=== PATIENT | female | born 1995 | race Caucasian/White ===

== ENCOUNTER 2024-10-16 07:48 | Day surgery (SDC) | payer BC, SELFPAY ==
[2024-10-16 08:16] VITALS: BMI 55.2
[2024-10-16 08:21] LABS: Ur HCG Qualitative* Negative (Negative)
[2024-10-16 08:24] VITALS: BP 146/68; PULSE 106; RESP 20; TEMP 37.1; O2SAT 95
[2024-10-16] MEDS: SODIUM CHLORIDE 0.9 % (FLUSH) 10 ML SYRINGE IVF (08:45)
[2024-10-16] MEDS: LACTATED RINGERS 1000 ML 1,000 ML 100 ML IV (08:46)
--- NOTE | 2024-10-16 08:53 | W.PM.H&PU ---
History & Physical Update History & Physical Update H&P Reviewed and patient assessed: No changes noted
--- NOTE | 2024-10-16 08:55 | CRLHL7_ITS ---
For Patients: As a result of the Cures Act, medical imaging exams and procedure reports are released immediately into your electronic medical record. You may view this report before your referring provider. If you have questions, please contact your health care provider. Indication: NEXPLANON REMOVAL Technique: One fluoroscopic image of the left elbow soft tissues. Fluoroscopic time 23.7 seconds. IMPRESSION: Fluoroscopic guidance for soft tissue procedure. Dictated by Abdifatah Mcclure MD @ 10/16/2024 10:56:05 AM (Electronically Signed)
[2024-10-16] MEDS: CEFAZOLIN 1 GM inj IVP (09:25)
[2024-10-16] MEDS: LIDOCAINE 1%-EPI 1:100,000 20 ML INFILTRATI (09:45)
[2024-10-16] MEDS: BUPIVACAINE 0.25% 30 ML INJECTION (09:45)
--- NOTE | 2024-10-16 10:01 | SUR.OPER ---
Nexplanon implant removed and discarded per Dr. Francis.
[2024-10-16 10:20] VITALS: BP 143/72; PULSE 106; RESP 20; TEMP 36.8; O2SAT 98
--- NOTE | 2024-10-16 10:20 | P.ANES_ITS ---
Anesthesia Charges Start Date/Time Anesthesia Start Date: 10/16/24 Anesthesia Start Time: 09:11 Stop Date/Time Anesthesia Stop Date: 10/16/24 Anesthesia Stop Time: 10:20 Coding CPT Codes CPT Codes: ANESTH SKIN EXT/PER/ATRUNK - 24555 ([id number]) P3 - PATIENT W/SEVERE SYS DISEASE, QK - MILL TENDER SECOND OPERATOR 2-4 CNCRNT ANES PROC, QX - EVS TECH SVC W/ MD MED DIRECTION
--- NOTE | 2024-10-16 10:20 | W.ANESCHARGE ---
Anesthesia Charges Start Date/Time Anesthesia Start Date: 10/16/24 Anesthesia Start Time: 09:11 Stop Date/Time Anesthesia Stop Date: 10/16/24 Anesthesia Stop Time: 10:20 Coding CPT Codes CPT Codes: ANESTH SKIN EXT/PER/ATRUNK - 71984 ([id number]) P3 - PATIENT W/SEVERE SYS DISEASE, QK - TAX COMPLIANCE OFFICER 2-4 CNCRNT ANES PROC, QX - TICKET CLERK SVC W/ MD MED DIRECTION
--- NOTE | 2024-10-16 10:26 | PM.GSPRC ---
Operative Note Date of procedure: 10/16/24 Pre-op diagnosis: 1. Nexplanon in place, desire for removal. Post-op diagnosis: same Type of Procedure: 1. Excision of left upper arm Nexplanon. Indications: 29-year-old female was seen in clinic for evaluation of removal of left upper arm Nexplanon. Patient had her Nexplanon placed several years ago and desired removal of it. 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 Her primary care doctor was not able to palpate the Nexplanon and referred her to surgical clinic. On clinical exam it was difficult to palpate the location of Nexplanon due to patient's body habitus. An x-ray of the left arm was obtained that confirmed presence of Nexplanon. Given patient's desire for removal of the Nexplanon and difficulty finding it on clinical exam, removal in the operating room under fluoroscopy was recommended. The procedure was discussed in detail. The risks associated procedure including infection and bleeding were discussed with the patient, and she agreed to proceed. Procedure Description: After discussing the risks and benefits of the procedure, the patient signed informed consent.? The operative site was marked and the patient was brought to the operating room and placed on the operating table in supine position.? Care was taken to pad the patient's pressure points.?? The patient was then sedated by anesthesia.?? The operative site was then prepped and draped in the usual sterile fashion.? A time-out was then performed. With fluoroscopy guidance the location of Nexplanon in subcutaneous fat was noted. Local anesthetic was injected at the surgical site. With frequent palpation of soft tissues and dissecting the soft tissue, the left upper arm soft tissue was explored until finally were able to locate Nexplanon and remove it in 1 piece. Hemostasis was achieved with cautery. Additional Local anesthetic was injected in soft tissue. Subcutaneous fat and dermis were reapproximated with interrupted 3-0 Vicryl sutures. The skin was closed with a running 4-0 Monocryl stitch. Steri-Strips were placed over the incision. Sterile gauze was placed over the incision and the left upper arm was wrapped in an Stone wrap. ? The patient was then woken and transported to the recovery area in stable condition. ? The patient tolerated the procedure well. Findings: Nexplanon was located in the left upper arm and removed Anesthesia: MAC and local Surgeon: Matilda Francis MD Estimated blood loss (mL): 2 Additional Specimen Information: Nexplanon was not sent to pathology. Condition: stable Disposition: same day
--- NOTE | 2024-10-16 10:27 | P.ANES_ITS ---
Anesthesia Charges Start Date/Time Anesthesia Start Date: 10/16/24 Anesthesia Start Time: 09:11 Stop Date/Time Anesthesia Stop Date: 10/16/24 Anesthesia Stop Time: 10:20 Coding CPT Codes CPT Codes: ANESTH SKIN EXT/PER/ATRUNK - 56758 ([id number]) P3 - PATIENT W/SEVERE SYS DISEASE, QZ - HAIRSPRING TRUER SVC W/O TOOL PROGRAMMER BY
--- NOTE | 2024-10-16 10:27 | W.ANESCHARGE ---
Anesthesia Charges Start Date/Time Anesthesia Start Date: 10/16/24 Anesthesia Start Time: 09:11 Stop Date/Time Anesthesia Stop Date: 10/16/24 Anesthesia Stop Time: 10:20 Coding CPT Codes CPT Codes: ANESTH SKIN EXT/PER/ATRUNK - 32341 ([id number]) P3 - PATIENT W/SEVERE SYS DISEASE, QZ - EMERGENCY DEPARTMENT CLINICIAN SVC W/O MACHINE PULLER BY
[2024-10-16 10:31] VITALS: BP 138/65; PULSE 91; RESP 20; O2SAT 97
[2024-10-16 10:45] VITALS: BP 138/77; PULSE 91; RESP 20; O2SAT 95
== END 2024-10-16 11:06 | disposition home or self-care (01) ==
PROVIDERS: Anesthesiology; PCP Student in an Organized Health Care Education/Training Program; Visit Provider Surgery
PROC: (CPT 26055; principal; 2024-10-16 09:30)
DX: Z30.46 Encounter for surveillance of implantable subdermal contraceptive (principal)
CPT/HCPCS: 11982; 00400; 73070; 76000; 81025; J0665; J0690; J1100; J2250; J2405; J2704; J3010; J3490; J7120

== ENCOUNTER 2024-12-12 20:30 | Outpatient (CLI) | payer BC, SELFPAY | END 2024-12-12 20:31 | disposition home or self-care (01) | LOC: SLEEP 20:30 | PROVIDERS: PCP Student in an Organized Health Care Education/Training Program; Visit Provider Internal Medicine | DX: G47.33 Obstructive sleep apnea (adult) (pediatric) (principal); G47.10 Hypersomnia, unspecified | CPT/HCPCS: 95810 ==